=== PATIENT | female | born 1945 | race Caucasian/White ===

== ENCOUNTER 2022-11-01 14:30 | Outpatient (RCR) | payer MEDICARE, OTHER, SELFPAY ==
--- NOTE | 2022-09-13 12:30 | PT.OIE ---
Current Diagnoses Spinal stenosis, lumbar region with neurogenic claudication (09/13/22) Visit Care Team Role Provider Type Lex Mackay MD Primary Care Provider Non-Staff Specialty: Physical Medicine and Rehab Address: [address] [place] [address], [id number] Email: Attending Provider Referring Provider Specialty: Address: Phone: Fax: Email: Physical Therapy Initial Evaluation PT-OP-A Visit Information Start: 09/13/22 11:26 Freq: Status: Active Protocol: Document 09/13/22 11:28 TH (Rec: 09/13/22 12:30 TH [id number]) Out-Patient Physical Therapy Visit Information Visit Information Visit Type Initial Evaluation Visit Start Time 11:15 Visit Stop Time 12:05 Total Visit Minutes 50 Visit Number 1 Number of REVENUE CYCLE CONSULTANT Visits 0 Precautions Precautions Stroke/TIA x 2 2020, Fall risk ( balance issues since strokes), On Blood thinners , Osteopenia PT-OP-B Current Condition Start: 09/13/22 11:26 Freq: Status: Active Protocol: Document 09/13/22 11:28 TH (Rec: 09/13/22 12:30 TH [id number]) Current Condition History of Current Condition History of Current Condition Pt states that her LBP ( mostly on right side) and right buttock pain started about a year ago with progressively worsening pain. Recently pain has been improving after seeing chiropractor ( traction). At night right buttock/leg pain. In addition about 6 months ago pt noticed RLE weakness with right hip IR. Prior Functional Status Baseline Function- ADL's Independent Baseline Function- Mobility Independent Current Functional Impairments (Reported) Functional Limitations- ADL's IND Functional Limitations- Mobility/Gait IND though transfers have been difficult due to RLE weakness , prolonged sitting difficult PT-OP-E Functional Tests Start: 09/13/22 11:26 Freq: Status: Active Protocol: Document 09/13/22 11:28 TH (Rec: 09/13/22 12:30 TH [id number]) Functional Tests Other MOLBP Score 4/50 PT-OP-J Posture/Palpation/Skin Start: 09/13/22 11:26 Freq: Status: Active Protocol: Document 09/13/22 11:28 TH (Rec: 09/13/22 12:30 TH [id number]) Posture Evaluation Position Standing Evaluation View Posterior PT-OP-K Range of Motion Start: 09/13/22 11:26 Freq: Status: Active Protocol: Document 09/13/22 11:28 TH (Rec: 09/13/22 12:30 TH [id number]) Lumbar Spine Range of Motion Lumbar Spine Active Testing Position Standing Comments Standing postural assessment: Left ankle increased pronation , increased ER left hip, increased thoracic extension, hypomobile right SI, Ant rot right hip , right leg functionally shorter than left , left innominate inflare, Lumbar Flexion: WNL ( HS slight limitation) Extension: WNL Rotation: limited PT-OP-L Special Tests Start: 09/13/22 11:26 Freq: Status: Active Protocol: Document 09/13/22 11:28 TH (Rec: 09/13/22 12:30 TH [id number]) Special Tests Cervical Spine Special Tests Simonette Comments Pos right Hip Special Tests Hiro Comments Pos right PT-OP-Q Treatments Start: 09/13/22 11:26 Freq: Status: Active Protocol: Document 09/13/22 11:28 TH (Rec: 09/13/22 12:30 TH [id number]) Therapeutic Exercises Other Exercises piriformis stretch Comments x 2 30 sec self correction SI joint Side right Comments x2 20 sec hold Hip flexor stretch Comments Off EOB 2 x 30 sec hold Self-Care/Home Management Treatment Education Patient Education Home Exercise Program Other Education Access Code: [email or web address] URL: [email or web address] Date: 09/13/2022 Prepared by: Damaris Walter Exercises 90/90 SI Joint Self-Correction with Dowel - 1 x daily - 7 x weekly - 1 sets - 3 reps - 60 sec hold Supine Quadriceps Stretch with Strap on Table - 1 x daily - 7 x weekly - 1 sets - 3 reps - 30 sec hold Seated Piriformis Stretch with Trunk Bend - 1 x daily - 7 x weekly - 1 sets - 3 reps - 30- 60 sec hold PT-OP-T Assessment and Plan Start: 09/13/22 11:26 Freq: Status: Active Protocol: Document 09/13/22 11:28 TH (Rec: 09/13/22 12:30 TH [id number]) Physical Therapy Assessment Goals 3 Impairment R hip ant. rotation Short Term Goal (STG) R hip alignment will improve by 50 % STG Duration 09/13/22 Shelter Goal (LTG) R hip alignment will improve by 100% LTG Duration 12/06/22 2 Impairment Difficult to transfer sit to stand. Short Term Goal (STG) Pt will be able to transfer with pain <= 4/10 and improved RLE stability. STG Duration 09/13/22 Shelter Goal (LTG) Pt will be able to transfer with minimal to no pain and improved RLE stability. LTG Duration 12/06/22 1 Impairment Unable to tolerate prolonged sitting. Short Term Goal (STG) Pt will be able to sit for > = 30 min with r buttock pain <= 4/10. STG Duration 09/13/22 Shelter Goal (LTG) Pt will be able to sit for > = 30 min with r buttock pain minimal to no pain. LTG Duration 12/06/22 Assessment Summary Assessment Pt presents with hypomobile right SI joint, muscle imbalance of core and hips and degenerative changes that have led to increased stress on lumbar paraspinlas and bilat SI joints. Physical Therapy Plan Frequency and Duration Frequency of Treatment 1-2 x /wk Duration of treatment (weeks) 12 Plan of Care Start Date 09/13/22 Plan of Care End Date 12/06/22 Therapeutic Interventions Therapeutic Interventions Balance Training,Gait Training ,Home Exercise Program,Joint Mobilizations,Manual Therapy, Neuromuscular Re-education, Orthotic/Prosthetic Management ,Patient/Caregiver Education, Self-Care/Home Management,Soft Tissue Mobilization,Taping, Therapeutic Activities, Therapeutic Exercises Modalities Cold Pack/Ice Massage,Electric Stimulation,Hot Packs, Traction- Mechanical, Ultrasound Next Visit Focus/Plan Next Note Type Treatment Note Next Visit Plan Right iliopsoas release Right LE long axis traction Lumbar traction
--- NOTE | 2022-09-15 14:08 | PT.OTN ---
Current Diagnoses Spinal stenosis, lumbar region with neurogenic claudication (09/15/22) Physical Therapy Treatment Note PT-OP-A Visit Information Start: 09/13/22 11:26 Freq: Status: Active Protocol: Document 09/15/22 13:07 TH (Rec: 09/15/22 14:08 TH [id number]) Out-Patient Physical Therapy Visit Information Visit Information Visit Type Treatment Note Visit Start Time 13:00 Visit Stop Time 13:55 Total Visit Minutes 55 Visit Number 2 Number of FLIGHT OPERATIONS DISPATCH CLERK Visits 0 PT-OP-B Current Condition Start: 09/13/22 11:26 Freq: Status: Active Protocol: Document 09/13/22 11:28 TH (Rec: 09/13/22 12:30 TH [id number]) Current Condition History of Current Condition History of Current Condition Pt states that her LBP ( mostly on right side) and right buttock pain started about a year ago with progressively worsening pain. Recently pain has been improving after seeing chiropractor ( traction). At night right buttock/leg pain. In addition about 6 months ago pt noticed RLE weakness with right hip IR. Prior Functional Status Baseline Function- ADL's Independent Baseline Function- Mobility Independent Current Functional Impairments (Reported) Functional Limitations- ADL's IND Functional Limitations- Mobility/Gait IND though transfers have been difficult due to RLE weakness , prolonged sitting difficult PT-OP-C Subjective Start: 09/13/22 11:26 Freq: Status: Active Protocol: Document 09/15/22 13:07 TH (Rec: 09/15/22 14:08 TH [id number]) OP-PT Subjective Patient Comments Patient Comments Pt states HEP is going well aside from some difficulties with hip flexor stretch in supine. Symptoms the same since evaluation. Patient Reported Progress Same PT-OP-E Functional Tests Start: 09/13/22 11:26 Freq: Status: Active Protocol: Document 09/13/22 11:28 TH (Rec: 09/13/22 12:30 TH [id number]) Functional Tests Other MOLBP Score 4/50 PT-OP-J Posture/Palpation/Skin Start: 09/13/22 11:26 Freq: Status: Active Protocol: Document 09/13/22 11:28 TH (Rec: 09/13/22 12:30 TH [id number]) Posture Evaluation Position Standing Evaluation View Posterior PT-OP-K Range of Motion Start: 09/13/22 11:26 Freq: Status: Active Protocol: Document 09/13/22 11:28 TH (Rec: 09/13/22 12:30 TH [id number]) Lumbar Spine Range of Motion Lumbar Spine Active Testing Position Standing Comments Standing postural assessment: Left ankle increased pronation , increased ER left hip, increased thoracic extension, hypomobile right SI, Ant rot right hip , right leg functionally shorter than left , left innominate inflare, Lumbar Flexion: WNL ( HS slight limitation) Extension: WNL Rotation: limited PT-OP-L Special Tests Start: 09/13/22 11:26 Freq: Status: Active Protocol: Document 09/13/22 11:28 TH (Rec: 09/13/22 12:30 TH [id number]) Special Tests Cervical Spine Special Tests Simonette Comments Pos right Hip Special Tests Hiro Comments Pos right PT-OP-Q Treatments Start: 09/13/22 11:26 Freq: Status: Active Protocol: Document 09/15/22 13:07 TH (Rec: 09/15/22 14:08 TH [id number]) Manual Therapy Treatment Manual Techniques SI joint mob Body Position Prone Comments Left side Long axis traction Body Position Supine Comments right LE iliopsoas release Body Position Supine Comments right side Self-Care/Home Management Treatment Education Other Education Access Code: [email or web address] URL: [email or web address] Date: 09/15/2022 Prepared by: Damaris Walter Exercises 90/90 SI Joint Self-Correction with Dowel - 1 x daily - 7 x weekly - 1 sets - 3 reps - 60 sec hold Supine Quadriceps Stretch with Strap on Table - 1 x daily - 7 x weekly - 1 sets - 3 reps - 30 sec hold Seated Piriformis Stretch with Trunk Bend - 1 x daily - 7 x weekly - 1 sets - 3 reps - 30- 60 sec hold Hooklying Isometric Clamshell - 1 x daily - 7 x weekly - 1-2 sets - 10 reps Standing Hip Flexor Stretch with Foot Elevated - 1 x daily - 7 x weekly - 1 sets - 3 reps - 30-60 sec hold PT-OP-R Modalities Start: 09/13/22 11:26 Freq: Status: Active Protocol: Document 09/15/22 13:07 TH (Rec: 09/15/22 14:08 TH [id number]) Electric Stimulation Electric Stimulation ESTIM Target/Sweep Target Patient Position Supine Combined With Heat/Cold Hot Pack Comments bilat. buttock crossing SI joints PT-OP-T Assessment and Plan Start: 09/13/22 11:26 Freq: Status: Active Protocol: Document 09/15/22 13:07 TH (Rec: 09/15/22 14:08 TH [id number]) Physical Therapy Assessment Goals 3 Impairment R hip ant. rotation Short Term Goal (STG) R hip alignment will improve by 50 % STG Duration 09/13/22 Lumber Checker Goal (LTG) R hip alignment will improve by 100% LTG Duration 12/06/22 2 Impairment Difficult to transfer sit to stand. Short Term Goal (STG) Pt will be able to transfer with pain <= 4/10 and improved RLE stability. STG Duration 09/13/22 Lumber Checker Goal (LTG) Pt will be able to transfer with minimal to no pain and improved RLE stability. LTG Duration 12/06/22 1 Impairment Unable to tolerate prolonged sitting. Short Term Goal (STG) Pt will be able to sit for > = 30 min with r buttock pain <= 4/10. STG Duration 09/13/22 Skilled Nursing Goal (LTG) Pt will be able to sit for > = 30 min with r buttock pain minimal to no pain. LTG Duration 12/06/22 Assessment Summary Assessment Correction from evaluation Left SI joint hypomobile. Pt tolerated manual therapy well and hips level afterwards . Instructed pt to continue with HEP to help maintain proper position of hips. Will assess response to manual next visit. Physical Therapy Plan Frequency and Duration Frequency of Treatment 1-2 x /wk Duration of treatment (weeks) 12 Plan of Care Start Date 09/13/22 Plan of Care End Date 12/06/22 Therapeutic Interventions Therapeutic Interventions Balance Training,Gait Training ,Home Exercise Program,Joint Mobilizations,Manual Therapy, Neuromuscular Re-education, Orthotic/Prosthetic Management ,Patient/Caregiver Education, Self-Care/Home Management,Soft Tissue Mobilization,Taping, Therapeutic Activities, Therapeutic Exercises Modalities Cold Pack/Ice Massage,Electric Stimulation,Hot Packs, Traction- Mechanical, Ultrasound Next Visit Focus/Plan Next Note Type Treatment Note Next Visit Plan Right iliopsoas release Right LE long axis traction Left SI joint mob stabilization ex. for right hip ESTIM if needed
--- NOTE | 2022-09-20 12:13 | PT.OTN ---
Current Diagnoses Spinal stenosis, lumbar region with neurogenic claudication (09/20/22) Physical Therapy Treatment Note PT-OP-A Visit Information Start: 09/13/22 11:26 Freq: Status: Active Protocol: Document 09/20/22 11:22 TH (Rec: 09/20/22 12:13 TH [id number]) Out-Patient Physical Therapy Visit Information Visit Information Visit Type Treatment Note Visit Start Time 11:15 Visit Stop Time 12:00 Total Visit Minutes 45 Visit Number 3 Number of CHILD PROTECTION SPECIALIST Visits 0 PT-OP-B Current Condition Start: 09/13/22 11:26 Freq: Status: Active Protocol: Document 09/13/22 11:28 TH (Rec: 09/13/22 12:30 TH [id number]) Current Condition History of Current Condition History of Current Condition Pt states that her LBP ( mostly on right side) and right buttock pain started about a year ago with progressively worsening pain. Recently pain has been improving after seeing chiropractor ( traction). At night right buttock/leg pain. In addition about 6 months ago pt noticed RLE weakness with right hip IR. Prior Functional Status Baseline Function- ADL's Independent Baseline Function- Mobility Independent Current Functional Impairments (Reported) Functional Limitations- ADL's IND Functional Limitations- Mobility/Gait IND though transfers have been difficult due to RLE weakness , prolonged sitting difficult PT-OP-C Subjective Start: 09/13/22 11:26 Freq: Status: Active Protocol: Document 09/20/22 11:22 TH (Rec: 09/20/22 12:13 TH [id number]) OP-PT Subjective Patient Comments Patient Comments Pt states symptoms are improving some since the start of PT. Patient Reported Progress Improving PT-OP-E Functional Tests Start: 09/13/22 11:26 Freq: Status: Active Protocol: Document 09/13/22 11:28 TH (Rec: 09/13/22 12:30 TH [id number]) Functional Tests Other MOLBP Score 4/50 PT-OP-J Posture/Palpation/Skin Start: 09/13/22 11:26 Freq: Status: Active Protocol: Document 09/13/22 11:28 TH (Rec: 09/13/22 12:30 TH [id number]) Posture Evaluation Position Standing Evaluation View Posterior PT-OP-K Range of Motion Start: 09/13/22 11:26 Freq: Status: Active Protocol: Document 09/13/22 11:28 TH (Rec: 09/13/22 12:30 TH [id number]) Lumbar Spine Range of Motion Lumbar Spine Active Testing Position Standing Comments Standing postural assessment: Left ankle increased pronation , increased ER left hip, increased thoracic extension, hypomobile right SI, Ant rot right hip , right leg functionally shorter than left , left innominate inflare, Lumbar Flexion: WNL ( HS slight limitation) Extension: WNL Rotation: limited PT-OP-L Special Tests Start: 09/13/22 11:26 Freq: Status: Active Protocol: Document 09/20/22 11:22 TH (Rec: 09/20/22 12:13 TH [id number]) Special Tests Cervical Spine Special Tests Gilette Comments Correction: pos. left/ improving PT-OP-Q Treatments Start: 09/13/22 11:26 Freq: Status: Active Protocol: Document 09/20/22 11:22 TH (Rec: 09/20/22 12:13 TH [id number]) Therapeutic Exercises Other Exercises isometric hip abduction Comments 2 x 10 bilat with TA/glut. med . Hip flexor stretch Comments 2x 30 sec holds Manual Therapy Treatment Manual Techniques hip flexor stretch Comments Right hip flexor stretch off EOB with massage roller to quads SI joint mob Comments left Long axis traction Comments left LE iliopsoas release Comments right PT-OP-R Modalities Start: 09/13/22 11:26 Freq: Status: Active Protocol: Document 09/15/22 13:07 TH (Rec: 09/15/22 14:08 TH [id number]) Electric Stimulation Electric Stimulation ESTIM Target/Sweep Target Patient Position Supine Combined With Heat/Cold Hot Pack Comments bilat. buttock crossing SI joints PT-OP-T Assessment and Plan Start: 09/13/22 11:26 Freq: Status: Active Protocol: Document 09/20/22 11:22 TH (Rec: 09/20/22 12:13 TH [id number]) Physical Therapy Assessment Goals 3 Impairment R hip ant. rotation Short Term Goal (STG) R hip alignment will improve by 50 % STG Duration 09/13/22 Retirement Goal (LTG) R hip alignment will improve by 100% LTG Duration 12/06/22 2 Impairment Difficult to transfer sit to stand. Short Term Goal (STG) Pt will be able to transfer with pain <= 4/10 and improved RLE stability. STG Duration 09/13/22 Remote Sensing Engineer Goal (LTG) Pt will be able to transfer with minimal to no pain and improved RLE stability. LTG Duration 12/06/22 1 Impairment Unable to tolerate prolonged sitting. Short Term Goal (STG) Pt will be able to sit for > = 30 min with r buttock pain <= 4/10. STG Duration 09/13/22 Retirement Goal (LTG) Pt will be able to sit for > = 30 min with r buttock pain minimal to no pain. LTG Duration 12/06/22 Assessment Summary Assessment Pt is making good progress as demonstrated by improved pain and increased left SI joint mobility. Will continue progressive strength training. Physical Therapy Plan Frequency and Duration Frequency of Treatment 1-2 x /wk Duration of treatment (weeks) 12 Plan of Care Start Date 09/13/22 Plan of Care End Date 12/06/22 Therapeutic Interventions Therapeutic Interventions Balance Training,Gait Training ,Home Exercise Program,Joint Mobilizations,Manual Therapy, Neuromuscular Re-education, Orthotic/Prosthetic Management ,Patient/Caregiver Education, Self-Care/Home Management,Soft Tissue Mobilization,Taping, Therapeutic Activities, Therapeutic Exercises Modalities Cold Pack/Ice Massage,Electric Stimulation,Hot Packs, Traction- Mechanical, Ultrasound Next Visit Focus/Plan Next Note Type Treatment Note Next Visit Plan Right iliopsoas release Right LE long axis traction Left SI joint mob stabilization ex. for right hip/ hip hike in supine/ APT/ PPT
--- NOTE | 2022-09-22 13:32 | PT.OTN ---
Current Diagnoses Spinal stenosis, lumbar region with neurogenic claudication (09/22/22) Physical Therapy Treatment Note PT-OP-A Visit Information Start: 09/13/22 11:26 Freq: Status: Active Protocol: Document 09/22/22 13:19 TH (Rec: 09/22/22 13:31 TH [id number]) Out-Patient Physical Therapy Visit Information Visit Information Visit Type Treatment Note Visit Start Time 13:00 Visit Stop Time 13:45 Total Visit Minutes 45 Visit Number 4 Number of CITY DRIVER Visits 0 PT-OP-B Current Condition Start: 09/13/22 11:26 Freq: Status: Active Protocol: Document 09/13/22 11:28 TH (Rec: 09/13/22 12:30 TH [id number]) Current Condition History of Current Condition History of Current Condition Pt states that her LBP ( mostly on right side) and right buttock pain started about a year ago with progressively worsening pain. Recently pain has been improving after seeing chiropractor ( traction). At night right buttock/leg pain. In addition about 6 months ago pt noticed RLE weakness with right hip IR. Prior Functional Status Baseline Function- ADL's Independent Baseline Function- Mobility Independent Current Functional Impairments (Reported) Functional Limitations- ADL's IND Functional Limitations- Mobility/Gait IND though transfers have been difficult due to RLE weakness , prolonged sitting difficult PT-OP-C Subjective Start: 09/13/22 11:26 Freq: Status: Active Protocol: Document 09/22/22 13:19 TH (Rec: 09/22/22 13:31 TH [id number]) OP-PT Subjective Patient Comments Patient Comments Pt states she felt pretty good after last rx then she thinks one of the exercises aggravated pain to SI region. Patient Reported Progress Improving PT-OP-E Functional Tests Start: 09/13/22 11:26 Freq: Status: Active Protocol: Document 09/13/22 11:28 TH (Rec: 09/13/22 12:30 TH [id number]) Functional Tests Other MOLBP Score 4/50 PT-OP-J Posture/Palpation/Skin Start: 09/13/22 11:26 Freq: Status: Active Protocol: Document 09/13/22 11:28 TH (Rec: 09/13/22 12:30 TH [id number]) Posture Evaluation Position Standing Evaluation View Posterior PT-OP-K Range of Motion Start: 09/13/22 11:26 Freq: Status: Active Protocol: Document 09/13/22 11:28 TH (Rec: 09/13/22 12:30 TH [id number]) Lumbar Spine Range of Motion Lumbar Spine Active Testing Position Standing Comments Standing postural assessment: Left ankle increased pronation , increased ER left hip, increased thoracic extension, hypomobile right SI, Ant rot right hip , right leg functionally shorter than left , left innominate inflare, Lumbar Flexion: WNL ( HS slight limitation) Extension: WNL Rotation: limited PT-OP-L Special Tests Start: 09/13/22 11:26 Freq: Status: Active Protocol: Document 09/20/22 11:22 TH (Rec: 09/20/22 12:13 TH [id number]) Special Tests Cervical Spine Special Tests Gilette Comments Correction: pos. left/ improving PT-OP-Q Treatments Start: 09/13/22 11:26 Freq: Status: Active Protocol: Document 09/22/22 13:19 TH (Rec: 09/22/22 13:31 TH [id number]) Therapeutic Exercises Other Exercises HEP Comments Reviewed HEP see self care HEP for details wall glide Comments right side Self-Care/Home Management Treatment Education Other Education Access Code: [email or web address] URL: [email or web address] Date: 09/22/2022 Prepared by: Damaris Walter Exercises 90/90 SI Joint Self-Correction with Dowel - 1 x daily - 7 x weekly - 1 sets - 3 reps - 60 sec hold Supine Quadriceps Stretch with Strap on Table - 1 x daily - 7 x weekly - 1 sets - 3 reps - 30 sec hold Seated Piriformis Stretch with Trunk Bend - 1 x daily - 7 x weekly - 1 sets - 3 reps - 30- 60 sec hold Hooklying Isometric Clamshell - 1 x daily - 7 x weekly - 1-2 sets - 10 reps Standing Hip Flexor Stretch with Foot Elevated - 1 x daily - 7 x weekly - 1 sets - 3 reps - 30-60 sec hold Right Standing Lateral Shift Correction at Wall - Hold - 1 x daily - 7 x weekly - 1 sets - 5 reps - 10-30 sec hold PT-OP-R Modalities Start: 09/13/22 11:26 Freq: Status: Active Protocol: Document 09/22/22 13:19 TH (Rec: 09/22/22 13:31 TH [id number]) Spinal Traction Traction Treatment lumbar traction Traction Treatment Comment Jackson ( lumbar traction ) PT-OP-T Assessment and Plan Start: 09/13/22 11:26 Freq: Status: Active Protocol: Document 09/20/22 11:22 TH (Rec: 09/20/22 12:13 TH [id number]) Physical Therapy Assessment Goals 3 Impairment R hip ant. rotation Short Term Goal (STG) R hip alignment will improve by 50 % STG Duration 09/13/22 Usp Goal (LTG) R hip alignment will improve by 100% LTG Duration 12/06/22 2 Impairment Difficult to transfer sit to stand. Short Term Goal (STG) Pt will be able to transfer with pain <= 4/10 and improved RLE stability. STG Duration 09/13/22 Usp Goal (LTG) Pt will be able to transfer with minimal to no pain and improved RLE stability. LTG Duration 12/06/22 1 Impairment Unable to tolerate prolonged sitting. Short Term Goal (STG) Pt will be able to sit for > = 30 min with r buttock pain <= 4/10. STG Duration 09/13/22 Teacher Resource Goal (LTG) Pt will be able to sit for > = 30 min with r buttock pain minimal to no pain. LTG Duration 12/06/22 Assessment Summary Assessment Pt is making good progress as demonstrated by improved pain and increased left SI joint mobility. Will continue progressive strength training. Physical Therapy Plan Frequency and Duration Frequency of Treatment 1-2 x /wk Duration of treatment (weeks) 12 Plan of Care Start Date 09/13/22 Plan of Care End Date 12/06/22 Therapeutic Interventions Therapeutic Interventions Balance Training,Gait Training ,Home Exercise Program,Joint Mobilizations,Manual Therapy, Neuromuscular Re-education, Orthotic/Prosthetic Management ,Patient/Caregiver Education, Self-Care/Home Management,Soft Tissue Mobilization,Taping, Therapeutic Activities, Therapeutic Exercises Modalities Cold Pack/Ice Massage,Electric Stimulation,Hot Packs, Traction- Mechanical, Ultrasound Next Visit Focus/Plan Next Note Type Treatment Note Next Visit Plan Right iliopsoas release Right LE long axis traction Left SI joint mob stabilization ex. for right hip/ hip hike in supine/ APT/ PPT
--- NOTE | 2022-09-27 12:07 | PT.OTN ---
Current Diagnoses Spinal stenosis, lumbar region with neurogenic claudication (09/27/22) Physical Therapy Treatment Note PT-OP-A Visit Information Start: 09/13/22 11:26 Freq: Status: Active Protocol: Document 09/27/22 11:23 TH (Rec: 09/27/22 12:07 TH [id number]) Out-Patient Physical Therapy Visit Information Visit Information Visit Type Treatment Note Visit Start Time 11:15 Visit Stop Time 12:00 Total Visit Minutes 45 Visit Number 5 Number of INDUSTRIAL PROPERTY APPRAISER Visits 0 PT-OP-B Current Condition Start: 09/13/22 11:26 Freq: Status: Active Protocol: Document 09/13/22 11:28 TH (Rec: 09/13/22 12:30 TH [id number]) Current Condition History of Current Condition History of Current Condition Pt states that her LBP ( mostly on right side) and right buttock pain started about a year ago with progressively worsening pain. Recently pain has been improving after seeing chiropractor ( traction). At night right buttock/leg pain. In addition about 6 months ago pt noticed RLE weakness with right hip IR. Prior Functional Status Baseline Function- ADL's Independent Baseline Function- Mobility Independent Current Functional Impairments (Reported) Functional Limitations- ADL's IND Functional Limitations- Mobility/Gait IND though transfers have been difficult due to RLE weakness , prolonged sitting difficult PT-OP-C Subjective Start: 09/13/22 11:26 Freq: Status: Active Protocol: Document 09/27/22 11:23 TH (Rec: 09/27/22 12:07 TH [id number]) OP-PT Subjective Patient Comments Patient Comments Pt states overall pain is better. Right lateral leg pain is now minimal. Patient Reported Progress Improving PT-OP-E Functional Tests Start: 09/13/22 11:26 Freq: Status: Active Protocol: Document 09/13/22 11:28 TH (Rec: 09/13/22 12:30 TH [id number]) Functional Tests Other MOLBP Score 4/50 PT-OP-J Posture/Palpation/Skin Start: 09/13/22 11:26 Freq: Status: Active Protocol: Document 09/13/22 11:28 TH (Rec: 09/13/22 12:30 TH [id number]) Posture Evaluation Position Standing Evaluation View Posterior PT-OP-K Range of Motion Start: 09/13/22 11:26 Freq: Status: Active Protocol: Document 09/13/22 11:28 TH (Rec: 09/13/22 12:30 TH [id number]) Lumbar Spine Range of Motion Lumbar Spine Active Testing Position Standing Comments Standing postural assessment: Left ankle increased pronation , increased ER left hip, increased thoracic extension, hypomobile right SI, Ant rot right hip , right leg functionally shorter than left , left innominate inflare, Lumbar Flexion: WNL ( HS slight limitation) Extension: WNL Rotation: limited PT-OP-L Special Tests Start: 09/13/22 11:26 Freq: Status: Active Protocol: Document 09/20/22 11:22 TH (Rec: 09/20/22 12:13 TH [id number]) Special Tests Cervical Spine Special Tests Simonette Comments Correction: pos. left/ improving PT-OP-Q Treatments Start: 09/13/22 11:26 Freq: Status: Active Protocol: Document 09/27/22 11:23 TH (Rec: 09/27/22 12:07 TH [id number]) Therapeutic Exercises Other Exercises anatomical posture on wall Comments 1 x 10 5 sec holds wall glides right Comments lateral wall glide right isometric hip abduction Comments 1 x 10 bilat. Hip flexor stretch Comments 2 x 30 sec Manual Therapy Treatment Manual Techniques iliopsoas release Comments right PT-OP-R Modalities Start: 09/13/22 11:26 Freq: Status: Active Protocol: Document 09/27/22 11:23 TH (Rec: 09/27/22 12:07 TH [id number]) Spinal Traction Traction Treatment lumbar traction Traction Treatment Comment Renetta ( lumbar traction ) PT-OP-T Assessment and Plan Start: 09/13/22 11:26 Freq: Status: Active Protocol: Document 09/27/22 11:23 TH (Rec: 09/27/22 12:07 TH [id number]) Physical Therapy Assessment Goals 3 Impairment R hip ant. rotation Short Term Goal (STG) R hip alignment will improve by 50 % STG Duration 09/13/22 [facility] Goal (LTG) R hip alignment will improve by 100% LTG Duration 12/06/22 2 Impairment Difficult to transfer sit to stand. Short Term Goal (STG) Pt will be able to transfer with pain <= 4/10 and improved RLE stability. STG Duration 09/13/22 Back Up Worker Goal (LTG) Pt will be able to transfer with minimal to no pain and improved RLE stability. LTG Duration 12/06/22 1 Impairment Unable to tolerate prolonged sitting. Short Term Goal (STG) Pt will be able to sit for > = 30 min with r buttock pain <= 4/10. STG Duration 09/13/22 [facility] Goal (LTG) Pt will be able to sit for > = 30 min with r buttock pain minimal to no pain. LTG Duration 12/06/22 Assessment Summary Assessment Pt making steady progress as demonstared by improved hip/ leg length level and decreased symptoms. Physical Therapy Plan Frequency and Duration Frequency of Treatment 1-2 x /wk Duration of treatment (weeks) 12 Plan of Care Start Date 09/13/22 Plan of Care End Date 12/06/22 Therapeutic Interventions Therapeutic Interventions Balance Training,Gait Training ,Home Exercise Program,Joint Mobilizations,Manual Therapy, Neuromuscular Re-education, Orthotic/Prosthetic Management ,Patient/Caregiver Education, Self-Care/Home Management,Soft Tissue Mobilization,Taping, Therapeutic Activities, Therapeutic Exercises Modalities Cold Pack/Ice Massage,Electric Stimulation,Hot Packs, Traction- Mechanical, Ultrasound
--- NOTE | 2022-10-04 16:23 | PT.OTN ---
Current Diagnoses Spinal stenosis, lumbar region with neurogenic claudication (10/04/22) Physical Therapy Treatment Note PT-OP-A Visit Information Start: 09/13/22 11:26 Freq: Status: Active Protocol: Document 10/04/22 14:00 TH (Rec: 10/04/22 16:21 TH [id number]) Out-Patient Physical Therapy Visit Information Visit Information Visit Type Treatment Note Visit Start Time 14:30 Visit Stop Time 15:15 Total Visit Minutes 45 Visit Number 6 Number of AIR POLLUTION COMPLIANCE INSPECTOR Visits 0 PT-OP-B Current Condition Start: 09/13/22 11:26 Freq: Status: Active Protocol: Document 09/13/22 11:28 TH (Rec: 09/13/22 12:30 TH [id number]) Current Condition History of Current Condition History of Current Condition Pt states that her LBP ( mostly on right side) and right buttock pain started about a year ago with progressively worsening pain. Recently pain has been improving after seeing chiropractor ( traction). At night right buttock/leg pain. In addition about 6 months ago pt noticed RLE weakness with right hip IR. Prior Functional Status Baseline Function- ADL's Independent Baseline Function- Mobility Independent Current Functional Impairments (Reported) Functional Limitations- ADL's IND Functional Limitations- Mobility/Gait IND though transfers have been difficult due to RLE weakness , prolonged sitting difficult PT-OP-C Subjective Start: 09/13/22 11:26 Freq: Status: Active Protocol: Document 10/04/22 14:00 TH (Rec: 10/04/22 16:21 TH [id number]) OP-PT Subjective Patient Comments Patient Comments Pt reports r hip/LE has been feeling pretty good aside from a little flare up after taking a longer walk. Patient Reported Progress Improving PT-OP-E Functional Tests Start: 09/13/22 11:26 Freq: Status: Active Protocol: Document 09/13/22 11:28 TH (Rec: 09/13/22 12:30 TH [id number]) Functional Tests Other MOLBP Score 4/50 PT-OP-J Posture/Palpation/Skin Start: 09/13/22 11:26 Freq: Status: Active Protocol: Document 09/13/22 11:28 TH (Rec: 09/13/22 12:30 TH [id number]) Posture Evaluation Position Standing Evaluation View Posterior PT-OP-K Range of Motion Start: 09/13/22 11:26 Freq: Status: Active Protocol: Document 09/13/22 11:28 TH (Rec: 09/13/22 12:30 TH [id number]) Lumbar Spine Range of Motion Lumbar Spine Active Testing Position Standing Comments Standing postural assessment: Left ankle increased pronation , increased ER left hip, increased thoracic extension, hypomobile right SI, Ant rot right hip , right leg functionally shorter than left , left innominate inflare, Lumbar Flexion: WNL ( HS slight limitation) Extension: WNL Rotation: limited PT-OP-L Special Tests Start: 09/13/22 11:26 Freq: Status: Active Protocol: Document 09/20/22 11:22 TH (Rec: 09/20/22 12:13 TH [id number]) Special Tests Cervical Spine Special Tests Richa Comments Correction: pos. left/ improving PT-OP-Q Treatments Start: 09/13/22 11:26 Freq: Status: Active Protocol: Document 10/04/22 14:00 TH (Rec: 10/04/22 16:21 TH [id number]) Therapeutic Exercises Other Exercises monster walk Comments 6 x 8 feet pink band hip hike Comments in supine 5x bilat hold 5 sec each HEP Comments Reviewed HEP and indicated ex. to focus on post PT isometric hip abduction Comments 2 x 10 pink band piriformis stretch Comments x 2 30 sec Manual Therapy Treatment Manual Techniques IASTM Comments IASTM right lateral gastroc / soleus. PT-OP-R Modalities Start: 09/13/22 11:26 Freq: Status: Active Protocol: Document 09/27/22 11:23 TH (Rec: 09/27/22 12:07 TH [id number]) Spinal Traction Traction Treatment lumbar traction Traction Treatment Comment Renetta ( lumbar traction ) PT-OP-T Assessment and Plan Start: 09/13/22 11:26 Freq: Status: Active Protocol: Document 10/04/22 14:00 TH (Rec: 10/04/22 16:21 TH [id number]) Physical Therapy Assessment Goals 3 Impairment R hip ant. rotation Short Term Goal (STG) R hip alignment will improve by 50 % STG Duration 09/13/22 Career Advisor Goal (LTG) R hip alignment will improve by 100% LTG Duration 12/06/22 MET 10/04/22 2 Impairment Difficult to transfer sit to stand. Short Term Goal (STG) Pt will be able to transfer with pain <= 4/10 and improved RLE stability. STG Duration 09/13/22 Group Home Goal (LTG) Pt will be able to transfer with minimal to no pain and improved RLE stability. LTG Duration 12/06/22 MET 10/04/22 1 Impairment Unable to tolerate prolonged sitting. Short Term Goal (STG) Pt will be able to sit for > = 30 min with r buttock pain <= 4/10. STG Duration 09/13/22 Group Home Goal (LTG) Pt will be able to sit for > = 30 min with r buttock pain minimal to no pain. LTG Duration 12/06/22 Assessment Summary Assessment Pt is making excellent progress as demonstrated by improved hip/spinal alignment and decreased R hip/LE pain. Physical Therapy Plan Frequency and Duration Frequency of Treatment 1-2 x /wk Duration of treatment (weeks) 12 Plan of Care Start Date 09/13/22 Plan of Care End Date 12/06/22 Therapeutic Interventions Therapeutic Interventions Balance Training,Gait Training ,Home Exercise Program,Joint Mobilizations,Manual Therapy, Neuromuscular Re-education, Orthotic/Prosthetic Management ,Patient/Caregiver Education, Self-Care/Home Management,Soft Tissue Mobilization,Taping, Therapeutic Activities, Therapeutic Exercises Modalities Cold Pack/Ice Massage,Electric Stimulation,Hot Packs, Traction- Mechanical, Ultrasound Next Visit Focus/Plan Next Visit Plan Manual therapy as needed SL balance/ bird marcia etc.
--- NOTE | 2022-10-10 14:38 | PT.OTN ---
Current Diagnoses Spinal stenosis, lumbar region with neurogenic claudication (10/10/22) Physical Therapy Treatment Note PT-OP-A Visit Information Start: 09/13/22 11:26 Freq: Status: Active Protocol: Document 10/10/22 13:57 TH (Rec: 10/10/22 14:38 TH [id number]) Out-Patient Physical Therapy Visit Information Visit Information Visit Type Treatment Note Visit Start Time 13:45 Visit Stop Time 14:30 Total Visit Minutes 45 Visit Number 7 Number of BIOMEDICAL ENGINEERING TECHNOLOGIST Visits 0 PT-OP-B Current Condition Start: 09/13/22 11:26 Freq: Status: Active Protocol: Document 09/13/22 11:28 TH (Rec: 09/13/22 12:30 TH [id number]) Current Condition History of Current Condition History of Current Condition Pt states that her LBP ( mostly on right side) and right buttock pain started about a year ago with progressively worsening pain. Recently pain has been improving after seeing chiropractor ( traction). At night right buttock/leg pain. In addition about 6 months ago pt noticed RLE weakness with right hip IR. Prior Functional Status Baseline Function- ADL's Independent Baseline Function- Mobility Independent Current Functional Impairments (Reported) Functional Limitations- ADL's IND Functional Limitations- Mobility/Gait IND though transfers have been difficult due to RLE weakness , prolonged sitting difficult PT-OP-C Subjective Start: 09/13/22 11:26 Freq: Status: Active Protocol: Document 10/04/22 14:00 TH (Rec: 10/04/22 16:21 TH [id number]) OP-PT Subjective Patient Comments Patient Comments Pt reports r hip/LE has been feeling pretty good aside from a little flare up after taking a longer walk. Patient Reported Progress Improving PT-OP-E Functional Tests Start: 09/13/22 11:26 Freq: Status: Active Protocol: Document 09/13/22 11:28 TH (Rec: 09/13/22 12:30 TH [id number]) Functional Tests Other MOLBP Score 4/50 PT-OP-J Posture/Palpation/Skin Start: 09/13/22 11:26 Freq: Status: Active Protocol: Document 09/13/22 11:28 TH (Rec: 09/13/22 12:30 TH [id number]) Posture Evaluation Position Standing Evaluation View Posterior PT-OP-K Range of Motion Start: 09/13/22 11:26 Freq: Status: Active Protocol: Document 09/13/22 11:28 TH (Rec: 09/13/22 12:30 TH [id number]) Lumbar Spine Range of Motion Lumbar Spine Active Testing Position Standing Comments Standing postural assessment: Left ankle increased pronation , increased ER left hip, increased thoracic extension, hypomobile right SI, Ant rot right hip , right leg functionally shorter than left , left innominate inflare, Lumbar Flexion: WNL ( HS slight limitation) Extension: WNL Rotation: limited PT-OP-L Special Tests Start: 09/13/22 11:26 Freq: Status: Active Protocol: Document 09/20/22 11:22 TH (Rec: 09/20/22 12:13 TH [id number]) Special Tests Cervical Spine Special Tests Gilette Comments Correction: pos. left/ improving PT-OP-Q Treatments Start: 09/13/22 11:26 Freq: Status: Active Protocol: Document 10/10/22 13:57 TH (Rec: 10/10/22 14:38 TH [id number]) Therapeutic Exercises Other Exercises anti rotation Comments 2 x 10 bilat green band mofified cobra Comments 1 x 5 hip hike Comments in supine 5x bilat hold 5 sec each wall glides right Comments lateral wall glide right isometric hip abduction Comments 2 x 10 pink band piriformis stretch Comments x 2 30 sec Self-Care/Home Management Treatment Education Patient Education Home Exercise Program Other Education Access Code: [email or web address] URL: [email or web address]/ Date: 10/10/2022 Prepared by: Damaris Walter Exercises - Supine Quadriceps Stretch with Strap on Table - 1 x daily - 7 x weekly - 1 sets - 3 reps - 30-60 sec hold - Hooklying Isometric Clamshell - 1 x daily - 7 x weekly - 3 sets - 10 reps - Seated Piriformis Stretch with Trunk Bend - 1 x daily - 7 x weekly - 1 sets - 3 reps - 30-60 sec hold - Standing Anatomical Position with Scapular Retraction and Depression at Wall - 1 x daily - 7 x weekly - 1 sets - 5-10 reps - 5 sec hold - Right Standing Lateral Shift Correction at Wall - Hold - 1 x daily - 7 x weekly - 1 sets - 5 reps - 10 sec hold - Supine Hip Hike - 1 x daily - 7 x weekly - 1-2 sets - 10 reps - 5 sec hold - Forward Monster Walks - 1 x daily - 7 x weekly - Standing Anti-Rotation Press with Anchored Resistance - 1 x daily - 7 x weekly - 1-2 sets - 10 re PT-OP-R Modalities Start: 09/13/22 11:26 Freq: Status: Active Protocol: Document 09/27/22 11:23 TH (Rec: 09/27/22 12:07 TH [id number]) Spinal Traction Traction Treatment lumbar traction Traction Treatment Comment Renetta ( lumbar traction ) PT-OP-T Assessment and Plan Start: 09/13/22 11:26 Freq: Status: Active Protocol: Document 10/10/22 13:57 TH (Rec: 10/10/22 14:38 TH [id number]) Physical Therapy Assessment Goals 3 Impairment R hip ant. rotation Short Term Goal (STG) R hip alignment will improve by 50 % STG Duration 09/13/22 Halfway Goal (LTG) R hip alignment will improve by 100% LTG Duration 12/06/22 MET 10/04/22 2 Impairment Difficult to transfer sit to stand. Short Term Goal (STG) Pt will be able to transfer with pain <= 4/10 and improved RLE stability. STG Duration 09/13/22 Online Affiliate Marketing Manager Goal (LTG) Pt will be able to transfer with minimal to no pain and improved RLE stability. LTG Duration 12/06/22 MET 10/04/22 1 Impairment Unable to tolerate prolonged sitting. Short Term Goal (STG) Pt will be able to sit for > = 30 min with r buttock pain <= 4/10. STG Duration 09/13/22 Halfway Goal (LTG) Pt will be able to sit for > = 30 min with r buttock pain minimal to no pain. LTG Duration 12/06/22 Assessment Summary Assessment Pt making good progress as demonstared by decreased symptoms and improving posture . Symptoms resolved aside from occasional left radicular pain. Physical Therapy Plan Frequency and Duration Frequency of Treatment 1-2 x /wk Duration of treatment (weeks) 12 Plan of Care Start Date 09/13/22 Plan of Care End Date 12/06/22 Therapeutic Interventions Therapeutic Interventions Balance Training,Gait Training ,Home Exercise Program,Joint Mobilizations,Manual Therapy, Neuromuscular Re-education, Orthotic/Prosthetic Management ,Patient/Caregiver Education, Self-Care/Home Management,Soft Tissue Mobilization,Taping, Therapeutic Activities, Therapeutic Exercises Modalities Cold Pack/Ice Massage,Electric Stimulation,Hot Packs, Traction- Mechanical, Ultrasound
--- NOTE | 2022-10-10 16:17 | PT.OTN ---
Current Diagnoses Spinal stenosis, lumbar region with neurogenic claudication (10/10/22) Physical Therapy Treatment Note PT-OP-A Visit Information Start: 09/13/22 11:26 Freq: Status: Active Protocol: Document 10/10/22 13:57 TH (Rec: 10/10/22 14:38 TH [id number]) Out-Patient Physical Therapy Visit Information Visit Information Visit Type Treatment Note Visit Start Time 13:45 Visit Stop Time 14:30 Total Visit Minutes 45 Visit Number 7 Number of CLOTH PATTERN MAKER Visits 0 PT-OP-B Current Condition Start: 09/13/22 11:26 Freq: Status: Active Protocol: Document 09/13/22 11:28 TH (Rec: 09/13/22 12:30 TH [id number]) Current Condition History of Current Condition History of Current Condition Pt states that her LBP ( mostly on right side) and right buttock pain started about a year ago with progressively worsening pain. Recently pain has been improving after seeing chiropractor ( traction). At night right buttock/leg pain. In addition about 6 months ago pt noticed RLE weakness with right hip IR. Prior Functional Status Baseline Function- ADL's Independent Baseline Function- Mobility Independent Current Functional Impairments (Reported) Functional Limitations- ADL's IND Functional Limitations- Mobility/Gait IND though transfers have been difficult due to RLE weakness , prolonged sitting difficult PT-OP-C Subjective Start: 09/13/22 11:26 Freq: Status: Active Protocol: Document 10/04/22 14:00 TH (Rec: 10/04/22 16:21 TH [id number]) OP-PT Subjective Patient Comments Patient Comments Pt reports r hip/LE has been feeling pretty good aside from a little flare up after taking a longer walk. Patient Reported Progress Improving PT-OP-E Functional Tests Start: 09/13/22 11:26 Freq: Status: Active Protocol: Document 09/13/22 11:28 TH (Rec: 09/13/22 12:30 TH [id number]) Functional Tests Other MOLBP Score 4/50 PT-OP-J Posture/Palpation/Skin Start: 09/13/22 11:26 Freq: Status: Active Protocol: Document 09/13/22 11:28 TH (Rec: 09/13/22 12:30 TH [id number]) Posture Evaluation Position Standing Evaluation View Posterior PT-OP-K Range of Motion Start: 09/13/22 11:26 Freq: Status: Active Protocol: Document 09/13/22 11:28 TH (Rec: 09/13/22 12:30 TH [id number]) Lumbar Spine Range of Motion Lumbar Spine Active Testing Position Standing Comments Standing postural assessment: Left ankle increased pronation , increased ER left hip, increased thoracic extension, hypomobile right SI, Ant rot right hip , right leg functionally shorter than left , left innominate inflare, Lumbar Flexion: WNL ( HS slight limitation) Extension: WNL Rotation: limited PT-OP-L Special Tests Start: 09/13/22 11:26 Freq: Status: Active Protocol: Document 09/20/22 11:22 TH (Rec: 09/20/22 12:13 TH [id number]) Special Tests Cervical Spine Special Tests Gilette Comments Correction: pos. left/ improving PT-OP-Q Treatments Start: 09/13/22 11:26 Freq: Status: Active Protocol: Document 10/10/22 13:57 TH (Rec: 10/10/22 14:38 TH [id number]) Therapeutic Exercises Other Exercises anti rotation Comments 2 x 10 bilat green band mofified cobra Comments 1 x 5 hip hike Comments in supine 5x bilat hold 5 sec each wall glides right Comments lateral wall glide right isometric hip abduction Comments 2 x 10 pink band piriformis stretch Comments x 2 30 sec Self-Care/Home Management Treatment Education Patient Education Home Exercise Program Other Education Access Code: [email or web address] URL: [email or web address] Date: 10/10/2022 Prepared by: Damaris Walter Exercises - Supine Quadriceps Stretch with Strap on Table - 1 x daily - 7 x weekly - 1 sets - 3 reps - 30-60 sec hold - Hooklying Isometric Clamshell - 1 x daily - 7 x weekly - 3 sets - 10 reps - Seated Piriformis Stretch with Trunk Bend - 1 x daily - 7 x weekly - 1 sets - 3 reps - 30-60 sec hold - Standing Anatomical Position with Scapular Retraction and Depression at Wall - 1 x daily - 7 x weekly - 1 sets - 5-10 reps - 5 sec hold - Right Standing Lateral Shift Correction at Wall - Hold - 1 x daily - 7 x weekly - 1 sets - 5 reps - 10 sec hold - Supine Hip Hike - 1 x daily - 7 x weekly - 1-2 sets - 10 reps - 5 sec hold - Forward Monster Walks - 1 x daily - 7 x weekly - Standing Anti-Rotation Press with Anchored Resistance - 1 x daily - 7 x weekly - 1-2 sets - 10 re PT-OP-R Modalities Start: 09/13/22 11:26 Freq: Status: Active Protocol: Document 09/27/22 11:23 TH (Rec: 09/27/22 12:07 TH [id number]) Spinal Traction Traction Treatment lumbar traction Traction Treatment Comment Renetta ( lumbar traction ) PT-OP-T Assessment and Plan Start: 09/13/22 11:26 Freq: Status: Active Protocol: Document 10/10/22 13:57 TH (Rec: 10/10/22 14:38 TH [id number]) Physical Therapy Assessment Goals 3 Impairment R hip ant. rotation Short Term Goal (STG) R hip alignment will improve by 50 % STG Duration 09/13/22 Senior Living Goal (LTG) R hip alignment will improve by 100% LTG Duration 12/06/22 MET 10/04/22 2 Impairment Difficult to transfer sit to stand. Short Term Goal (STG) Pt will be able to transfer with pain <= 4/10 and improved RLE stability. STG Duration 09/13/22 Global Chief Creative Officer Goal (LTG) Pt will be able to transfer with minimal to no pain and improved RLE stability. LTG Duration 12/06/22 MET 10/04/22 1 Impairment Unable to tolerate prolonged sitting. Short Term Goal (STG) Pt will be able to sit for > = 30 min with r buttock pain <= 4/10. STG Duration 09/13/22 Senior Living Goal (LTG) Pt will be able to sit for > = 30 min with r buttock pain minimal to no pain. LTG Duration 12/06/22 Assessment Summary Assessment Pt making good progress as demonstared by decreased symptoms and improving posture . Symptoms resolved aside from occasional left radicular pain. Physical Therapy Plan Frequency and Duration Frequency of Treatment 1-2 x /wk Duration of treatment (weeks) 12 Plan of Care Start Date 09/13/22 Plan of Care End Date 12/06/22 Therapeutic Interventions Therapeutic Interventions Balance Training,Gait Training ,Home Exercise Program,Joint Mobilizations,Manual Therapy, Neuromuscular Re-education, Orthotic/Prosthetic Management ,Patient/Caregiver Education, Self-Care/Home Management,Soft Tissue Mobilization,Taping, Therapeutic Activities, Therapeutic Exercises Modalities Cold Pack/Ice Massage,Electric Stimulation,Hot Packs, Traction- Mechanical, Ultrasound
--- NOTE | 2022-10-18 16:18 | PT.OTN ---
Current Diagnoses Spinal stenosis, lumbar region with neurogenic claudication (10/18/22) Physical Therapy Treatment Note PT-OP-A Visit Information Start: 09/13/22 11:26 Freq: Status: Active Protocol: Document 10/18/22 14:37 TH (Rec: 10/18/22 16:18 TH [id number]) Out-Patient Physical Therapy Visit Information Visit Information Visit Type Treatment Note Visit Start Time 14:35 Visit Stop Time 15:15 Total Visit Minutes 40 Visit Number 8 Number of MEDICAL RESEARCH SCIENTIST Visits 0 PT-OP-B Current Condition Start: 09/13/22 11:26 Freq: Status: Active Protocol: Document 09/13/22 11:28 TH (Rec: 09/13/22 12:30 TH [id number]) Current Condition History of Current Condition History of Current Condition Pt states that her LBP ( mostly on right side) and right buttock pain started about a year ago with progressively worsening pain. Recently pain has been improving after seeing chiropractor ( traction). At night right buttock/leg pain. In addition about 6 months ago pt noticed RLE weakness with right hip IR. Prior Functional Status Baseline Function- ADL's Independent Baseline Function- Mobility Independent Current Functional Impairments (Reported) Functional Limitations- ADL's IND Functional Limitations- Mobility/Gait IND though transfers have been difficult due to RLE weakness , prolonged sitting difficult PT-OP-C Subjective Start: 09/13/22 11:26 Freq: Status: Active Protocol: Document 10/18/22 14:37 TH (Rec: 10/18/22 16:18 TH [id number]) OP-PT Subjective Patient Comments Patient Comments Pt states that her symptoms are minimal and she has been able to go for longer walks without issue. PT-OP-E Functional Tests Start: 09/13/22 11:26 Freq: Status: Active Protocol: Document 09/13/22 11:28 TH (Rec: 09/13/22 12:30 TH [id number]) Functional Tests Other MOLBP Score 4/50 PT-OP-J Posture/Palpation/Skin Start: 09/13/22 11:26 Freq: Status: Active Protocol: Document 09/13/22 11:28 TH (Rec: 09/13/22 12:30 TH [id number]) Posture Evaluation Position Standing Evaluation View Posterior PT-OP-K Range of Motion Start: 09/13/22 11:26 Freq: Status: Active Protocol: Document 09/13/22 11:28 TH (Rec: 09/13/22 12:30 TH [id number]) Lumbar Spine Range of Motion Lumbar Spine Active Testing Position Standing Comments Standing postural assessment: Left ankle increased pronation , increased ER left hip, increased thoracic extension, hypomobile right SI, Ant rot right hip , right leg functionally shorter than left , left innominate inflare, Lumbar Flexion: WNL ( HS slight limitation) Extension: WNL Rotation: limited PT-OP-L Special Tests Start: 09/13/22 11:26 Freq: Status: Active Protocol: Document 09/20/22 11:22 TH (Rec: 09/20/22 12:13 TH [id number]) Special Tests Cervical Spine Special Tests Simonette Comments Correction: pos. left/ improving PT-OP-Q Treatments Start: 09/13/22 11:26 Freq: Status: Active Protocol: Document 10/18/22 14:37 TH (Rec: 10/18/22 16:18 TH [id number]) Therapeutic Exercises Other Exercises lumbar traction Comments on floor with band anti rotation Comments 1 x 10 bilat green band PT-OP-R Modalities Start: 09/13/22 11:26 Freq: Status: Active Protocol: Document 10/18/22 14:37 TH (Rec: 10/18/22 16:18 TH [id number]) Spinal Traction Traction Treatment lumbar traction Traction Treatment Comment Renetta ( lumbar traction) PT-OP-T Assessment and Plan Start: 09/13/22 11:26 Freq: Status: Active Protocol: Document 10/18/22 14:37 TH (Rec: 10/18/22 16:18 TH [id number]) Physical Therapy Assessment Goals 3 Impairment R hip ant. rotation Short Term Goal (STG) R hip alignment will improve by 50 % STG Duration 09/13/22 Bilingual Instructor Goal (LTG) R hip alignment will improve by 100% LTG Duration 12/06/22 MET 10/04/22 2 Impairment Difficult to transfer sit to stand. Short Term Goal (STG) Pt will be able to transfer with pain <= 4/10 and improved RLE stability. STG Duration 09/13/22 Bilingual Instructor Goal (LTG) Pt will be able to transfer with minimal to no pain and improved RLE stability. LTG Duration 12/06/22 MET 10/04/22 1 Impairment Unable to tolerate prolonged sitting. Short Term Goal (STG) Pt will be able to sit for > = 30 min with r buttock pain <= 4/10. STG Duration 09/13/22 Fdc Goal (LTG) Pt will be able to sit for > = 30 min with r buttock pain minimal to no pain. LTG Duration 12/06/22 Assessment Summary Assessment Pt has made good progress as demonstrated by decreased symptoms. Pt will come in for one more visit to finalize HEP and likely dc at that time . Physical Therapy Plan Frequency and Duration Frequency of Treatment 1-2 x /wk Duration of treatment (weeks) 12 Plan of Care Start Date 09/13/22 Plan of Care End Date 12/06/22 Therapeutic Interventions Therapeutic Interventions Balance Training,Gait Training ,Home Exercise Program,Joint Mobilizations,Manual Therapy, Neuromuscular Re-education, Orthotic/Prosthetic Management ,Patient/Caregiver Education, Self-Care/Home Management,Soft Tissue Mobilization,Taping, Therapeutic Activities, Therapeutic Exercises Modalities Cold Pack/Ice Massage,Electric Stimulation,Hot Packs, Traction- Mechanical, Ultrasound Discharge Physical Therapy Discharge Comments Pt has Met all goals and has been dc from PT. Next Visit Focus/Plan Next Visit Plan Manual therapy as needed SL balance/ bird marcia etc.
--- NOTE | 2022-11-01 15:31 | PT.OTN ---
Current Diagnoses Spinal stenosis, lumbar region with neurogenic claudication (11/01/22) Physical Therapy Treatment Note PT-OP-A Visit Information Start: 09/13/22 11:26 Freq: Status: Active Protocol: Document 11/01/22 14:33 AMB (Rec: 11/01/22 15:31 AMB [id number]) Out-Patient Physical Therapy Visit Information Visit Information Visit Type Discharge Summary Visit Start Time 14:30 Visit Stop Time 15:15 Total Visit Minutes 45 Visit Number 9 PT-OP-B Current Condition Start: 09/13/22 11:26 Freq: Status: Active Protocol: Document 09/13/22 11:28 TH (Rec: 09/13/22 12:30 TH [id number]) Current Condition History of Current Condition History of Current Condition Pt states that her LBP ( mostly on right side) and right buttock pain started about a year ago with progressively worsening pain. Recently pain has been improving after seeing chiropractor ( traction). At night right buttock/leg pain. In addition about 6 months ago pt noticed RLE weakness with right hip IR. Prior Functional Status Baseline Function- ADL's Independent Baseline Function- Mobility Independent Current Functional Impairments (Reported) Functional Limitations- ADL's IND Functional Limitations- Mobility/Gait IND though transfers have been difficult due to RLE weakness , prolonged sitting difficult PT-OP-C Subjective Start: 09/13/22 11:26 Freq: Status: Active Protocol: Document 11/01/22 14:33 AMB (Rec: 11/01/22 15:31 AMB [id number]) OP-PT Subjective Patient Comments Patient Comments Pt reports she is doing well, ready for discharge other than questions about her HEP PT-OP-E Functional Tests Start: 09/13/22 11:26 Freq: Status: Active Protocol: Document 09/13/22 11:28 TH (Rec: 09/13/22 12:30 TH [id number]) Functional Tests Other MOLBP Score 4/50 PT-OP-J Posture/Palpation/Skin Start: 09/13/22 11:26 Freq: Status: Active Protocol: Document 09/13/22 11:28 TH (Rec: 09/13/22 12:30 TH [id number]) Posture Evaluation Position Standing Evaluation View Posterior PT-OP-K Range of Motion Start: 09/13/22 11:26 Freq: Status: Active Protocol: Document 09/13/22 11:28 TH (Rec: 09/13/22 12:30 TH [id number]) Lumbar Spine Range of Motion Lumbar Spine Active Testing Position Standing Comments Standing postural assessment: Left ankle increased pronation , increased ER left hip, increased thoracic extension, hypomobile right SI, Ant rot right hip , right leg functionally shorter than left , left innominate inflare, Lumbar Flexion: WNL ( HS slight limitation) Extension: WNL Rotation: limited PT-OP-L Special Tests Start: 09/13/22 11:26 Freq: Status: Active Protocol: Document 09/20/22 11:22 TH (Rec: 09/20/22 12:13 TH [id number]) Special Tests Cervical Spine Special Tests Gilette Comments Correction: pos. left/ improving PT-OP-Q Treatments Start: 09/13/22 11:26 Freq: Status: Active Protocol: Document 11/01/22 14:33 AMB (Rec: 11/01/22 15:31 AMB [id number]) Therapeutic Exercises Other Exercises lumbar traction Comments on floor with band monster walk Comments 6 x 8 feet pink band hip hike Other Exercise Name discussed options for standing and stairs Comments in supine 5x bilat hold 5 sec each Hip flexor stretch Comments 2 x 30 sec PT-OP-R Modalities Start: 09/13/22 11:26 Freq: Status: Active Protocol: Document 11/01/22 14:33 AMB (Rec: 11/01/22 15:31 AMB [id number]) Spinal Traction Traction Treatment lumbar traction Traction Treatment Comment Renetta ( lumbar traction) 20 # x 15 min PT-OP-T Assessment and Plan Start: 09/13/22 11:26 Freq: Status: Active Protocol: Document 11/01/22 14:33 AMB (Rec: 11/01/22 15:31 AMB [id number]) Physical Therapy Assessment Goals 3 Impairment R hip ant. rotation Short Term Goal (STG) R hip alignment will improve by 50 % STG Duration 09/13/22 Hand Plug Shaper Goal (LTG) R hip alignment will improve by 100% LTG Duration 12/06/22 MET 10/04/22 2 Impairment Difficult to transfer sit to stand. Short Term Goal (STG) Pt will be able to transfer with pain <= 4/10 and improved RLE stability. STG Duration 09/13/22 Hand Plug Shaper Goal (LTG) Pt will be able to transfer with minimal to no pain and improved RLE stability. LTG Duration 12/06/22 MET 10/04/22 1 Impairment Unable to tolerate prolonged sitting. Short Term Goal (STG) Pt will be able to sit for > = 30 min with r buttock pain <= 4/10. STG Duration 09/13/22 Alf Goal (LTG) Pt will be able to sit for > = 30 min with r buttock pain minimal to no pain. LTG Duration 12/06/22 Assessment Summary Assessment Pt needed some cues for HEP, but overall feeling better. Has met her goals and is ready for discharge. Physical Therapy Plan Frequency and Duration Frequency of Treatment 1-2 x /wk Duration of treatment (weeks) 12 Plan of Care Start Date 09/13/22 Plan of Care End Date 12/06/22 Therapeutic Interventions Therapeutic Interventions Balance Training,Gait Training ,Home Exercise Program,Joint Mobilizations,Manual Therapy, Neuromuscular Re-education, Orthotic/Prosthetic Management ,Patient/Caregiver Education, Self-Care/Home Management,Soft Tissue Mobilization,Taping, Therapeutic Activities, Therapeutic Exercises Modalities Cold Pack/Ice Massage,Electric Stimulation,Hot Packs, Traction- Mechanical, Ultrasound Discharge Physical Therapy Discharge Comments Pt has Met all goals and has been dc from PT.
== END 2022-11-02 09:05 | disposition home or self-care (01) ==
LOC: PHYS 14:30
PROVIDERS: PCP Physical Medicine & Rehabilitation
DX: M48.062 Spinal stenosis, lumbar region with neurogenic claudication (principal)
CPT/HCPCS: 97012; 97014; 97110; 97140; 97161; G0283